=== PATIENT | female | born 1930 | race Asian ===

== ENCOUNTER 2016-06-14 16:17 | Emergency (ER) | payer OTHER ==
--- NOTE | 2016-06-14 16:43 | PDOC ---
History of Present Illness - General History Source: Patient Exam Limitations: Language Barrier - History of Present Illness Initial Comments: 06/14/16 17:51 History was taken by axle and frame mechanic phone. Developer Programmer #[id number]. The patient is an 85 year old female with past medical history of hypertension, hyperlipidemia, and diabetes who presents to the ED s/p mechanical fall approximately 2 hours ago. The patient states she was trying to reach for her walker and fell. She reports she is unsure how she fell remembers when the ambulance arrived. In the ED she reports right hip, right shoulder, and neck pain as well as headache with pain around her right eye. She denies any recent illness, fever, chills, nausea, vomiting, diarrhea, cough, or urinary symptoms. PCP: Mayi Michele <Haley Headley - Last Filed: 06/14/16 17:49> - General History Source: Patient Exam Limitations: Language Barrier - History of Present Illness Initial Comments: 06/14/16 16:42 [place] # <Chely Dang - Last Filed: 06/15/16 16:33> - General Stated Complaint: FALL Time Seen by Provider: 06/14/16 16:23 Past History <Haley Headley - Last Filed: 06/14/16 17:49> - Past Medical History Diabetes: Yes HTN: Yes Hypercholesterolemia: Yes - Surgical History Abdominal Surgery: Yes - Immunization History Immunization Up to Date: Yes - Psycho/Social/Smoking Cessation Hx Suicidal Ideation: No Smoking History: Never smoked Hx Alcohol Use: No Drug/Substance Use Hx: No Substance Use Type: None <Chely Dang - Last Filed: 06/15/16 16:33> - Past Medical History Allergies/Adverse Reactions: Allergies Allergy/AdvReac Type Severity Reaction Status Date / Time No Known Allergies Allergy Verified 06/14/16 16:47 Home Medications: Ambulatory Orders Bisoprolol 2.5MG/Hctz 6.25MG [Ziac 2.5/6.25 mg (Nf) -] 1 tab PO DAILY 02/02/16 Canagliflozin [Invokana] 300 mg PO DAILY 02/02/16 Clopidogrel Bisulfate [Plavix -] 75 mg PO DAILY 02/02/16 Diclofenac Sodium [Voltaren] 1 applic TP DAILY 02/02/16 Erythromycin 0.5% Eye Ointment [Erythromycin 0.5% Eye Ointment -] 1 applic DAILY 02/02/16 Lubiprostone [Amitiza] 24 mcg PO DAILY 02/02/16 Rosuvastatin [Crestor -] 5 mg PO HS 02/02/16 Sitagliptin Phosphate [Januvia] 100 mg PO DAILY 02/02/16 Tamsulosin HCl [Flomax -] 0.4 mg PO DAILY 02/02/16 Tramadol HCl 50 mg PO PRN 02/02/16 Vortioxetine Hydrobromide [Trintellix] 10 mg PO DAILY 02/02/16 Ibuprofen [Motrin -] 400 mg PO Q6H #120 tablet 02/05/16 Methocarbamol [Robaxin -] 500 mg PO TID PRN #21 tablet 06/14/16 Tramadol HCl 50 mg PO BID PRN #10 tablet MDD 2 06/14/16 Review of Systems - Review of Systems Able to Perform ROS?: Yes Comments:: 06/14/16 17:52 GENERAL/CONSTITUTIONAL: No fever or chills. No weakness. HEAD, EYES, EARS, NOSE AND THROAT: No change in vision. No ear pain or discharge. No sore throat. CARDIOVASCULAR: No chest pain or shortness of breath. RESPIRATORY: No cough, wheezing, or hemoptysis. GASTROINTESTINAL: No nausea, vomiting, diarrhea or constipation. GENITOURINARY: No dysuria, frequency, or change in urination. MUSCULOSKELETAL: Present: Right hip pain, right shoulder pain, neck pain No back pain. SKIN: No rash NEUROLOGIC: Present: headache No vertigo, loss of consciousness, or change in strength/sensation. ENDOCRINE: No increased thirst. No abnormal weight change. HEMATOLOGIC/LYMPHATIC: No anemia, easy bleeding, or history of blood clots. ALLERGIC/IMMUNOLOGIC: No hives or skin allergy. All Other Systems: Reviewed and Negative <Haley Headley - Last Filed: 06/14/16 17:49> *Physical Exam - Vital Signs Last Vital Signs Temp Pulse Resp BP Pulse Ox 97.9 F 63 18 181/67 96 06/14/16 16:30 06/14/16 16:30 06/14/16 16:30 06/14/16 16:30 06/14/16 16:30 - Physical Exam Comments: 06/14/16 17:53 GENERAL: Awake, alert, and fully oriented, in no acute distress HEAD: No signs of trauma EYES: PERRLA, EOMI, sclera anicteric, conjunctiva clear ENT: Auricles normal inspection, hearing grossly normal, nares patent, oropharynx clear without exudates. Moist mucosa NECK: Normal ROM, supple, no lymphadenopathy, JVD, or masses LUNGS: Breath sounds equal, clear to auscultation bilaterally. No wheezes, and no crackles HEART: Regular rate and rhythm, normal S1 and S2, no murmurs, rubs or gallops ABDOMEN: Soft, nontender, normoactive bowel sounds. No guarding, no rebound. No masses EXTREMITIES: [place] to palpation in right hip and shoulder, moving all extremities. Normal range of motion, no edema. No clubbing or cyanosis. No cords or erythema NEUROLOGICAL: Cranial nerves II through XII grossly intact. Normal speech, normal gait SKIN: Warm, Dry, normal turgor, no rashes or lesions noted. <Haley Headley - Last Filed: 06/14/16 17:49> Heart Score/ECG Review #1 ECG reviewed & interpreted by me at: 17:22 06/14/16 17:22 Junctional rhythm , rate of 65 bpm [place] normal no ST elevations or depressions T waves nml <Chely Dang - Last Filed: 06/15/16 16:33> ED Treatment Course - LABORATORY CBC & Chemistry Diagram: 06/14/16 17:37 06/14/16 17:37 <Haley Headley - Last Filed: 06/14/16 17:49> - LABORATORY CBC & Chemistry Diagram: 06/14/16 17:37 06/14/16 17:37 <Chely Dang - Last Filed: 06/15/16 16:33> Medical Decision Making - Medical Decision Making 06/14/16 17:28 Thsi is a 85 yo F presenting to the Er with a complaint of fall from standing (+) head trauma ? LOC Pt complains of right hip pain Left neck pain Will do basic labs will do Head CT and Cervical Spine CT will do hip x ray and chest x ray Will re assess 06/14/16 19:09 06/14/16 19:10 Laboratory Tests 06/14/16 06/14/16 06/14/16 17:37 17:37 17:56 WBC 3.2 L Hgb 12.6 Hct 37.7 Plt Count 126 L Neutrophils % 41.6 L D Lymphocytes % 44.2 H D Sodium 141 Potassium 3.7 Chloride 104 Carbon Dioxide 29 BUN 21 H Creatinine 0.9 Random Glucose 129 H Creatine Kinase 66 Troponin I 0.03 Urine Ketones Negative Urine Blood 1+ H Urine Nitrite Negative Ur Leukocyte Esterase Trace H 06/14/16 19:16 CT: Moderate volume loss and ventricular dilatation, moderate chronic microvascular ischemic changes are present. No mass lesion, no infarct, no hemorrhage. CT cervical spine: C3-C4 moderate disc bulge, posterior spur formation C4-C5 mild central disc bulge, procedures or information. C5-C6 broad based disc bulge without gross nerve impingement. 06/14/16 21:47 Laboratory Tests 06/14/16 20:48 Creatine Kinase 63 Troponin I 0.03 Repeat troponin nml Will attempt to ambulate this patient If she is able to do so, will discharge to home 06/15/16 00:00 CT pelvis: mild compression of L5, likely old wiht mild retropulsion of its posterior margin L5-S1 disc bulge NO FRACTURE Will discharge to home Follow up with PMD Pt given copies of all results Plan discussed with pt son and granddaughter <Chely Dang - Last Filed: 06/15/16 16:33> *DC/Admit/Observation/Transfer - Attestations Scribe Attestion: 06/14/16 17:55 Documentation prepared by Haley Headley, acting as medical numerical control operator for Chely Dang MD. <Haley Headley - Last Filed: 06/14/16 17:49> - Discharge Dispostion Admit: No <Chely Dang - Last Filed: 06/15/16 16:33> Diagnosis at time of Disposition: Fall from standing Qualifiers: Encounter type: initial encounter Qualified Code(s): W19.XXXA - Unspecified fall, initial encounter - Discharge Dispostion Disposition: HOME Condition at time of disposition: Stable - Prescriptions Prescriptions: Methocarbamol [Robaxin -] 500 mg PO TID PRN #21 tablet PRN Reason: Pain Tramadol HCl 50 mg PO BID PRN #10 tablet MDD 2 PRN Reason: Pain - Patient Instructions Printed Discharge Instructions: How to Prevent Falls, DI for Musculoskeletal Pain Additional Instructions: Thank you for coming in to the ER today You make take tylenol for pain if needed If you have severe pain, you can take Tylenol #3 You should follow up with your primary care physician If you have persistent or worsening pain you MUST return to the ER for re evaluation you can sometimes have other injures not immediately visible Print Language: Swedish
[2016-06-14 16:48] VITALS: BP 181/67; PULSE 63; TEMP 97.9; BMI 26.7
[2016-06-14 17:46] LABS: BASOPHIL 0.6 % (0-2.0); EOSINOPHIL 1.2 % (0-4.5); MCH 32.5 pg (25.7-33.7); MCHC 33.4 g/dl (32.0-36.0); MEAN CELL VOLUME 97.3 fl (80-96); MEAN PLT VOLUME 7.8 fl (7.5-11.1); NEUTROPHILS 41.6 % (42.8-82.8); PLATELET COUNT 126 K/MM3 (134-434); RDW 12.9 % (11.6-15.6); WHITE BLOOD COUNT 3.2 K/mm3 (4.0-10.0)
[2016-06-14 18:38] LABS: URINE APPEARANCE CLEAR; URINE BILIRUBIN NEGATIVE (NEGATIVE); URINE COLOR COLORLESS; URINE GLUCOSE (UA) 3+ (NEGATIVE); URINE KETONE NEGATIVE (NEGATIVE); URINE NITRITE NEGATIVE (NEGATIVE); URINE UROBILINOGEN NEGATIVE E.U./dl (0.2-1.0)
[2016-06-14] MEDS ORDERED: ACETAMINOPHEN 1000 MG/100 ML VIAL (NON FORMULARY) IVPB ONE (18:41)
[2016-06-14 18:45] LABS: ALBUMIN 3.6 g/dl (3.4-5.0); BILIRUBIN,TOTAL 0.5 mg/dL (0.2-1.0); COCKROFT - GAULT 45.645; CREATININE 0.9 mg/dL (0.55-1.02); TOT PROT 6.9 g/dl (6.4-8.2); TROPONIN I 0.03 ng/ml (0.00-0.05)
[2016-06-14 18:49] LABS: URINE BLOOD 1+ (NEGATIVE); URINE LEUK ESTERASE TRACE (NEGATIVE); URINE PROTEIN 2+ (NEGATIVE)
[2016-06-14] MEDS ORDERED: ACETAMINOPHEN INJECTION 100 ML IVPB ONE (18:49)
[2016-06-14 21:30] LABS: URINE RBC 6 /hpf (0-3); URINE WBC 4 /hpf (3-5)
[2016-06-14 21:35] LABS: TROPONIN I 0.03 ng/ml (0.00-0.05)
--- NOTE | 2016-06-15 11:18 | EKG ---
Test Reason : Blood Pressure : / mmHG Vent. Rate : 065 BPM Atrial Rate : 326 BPM P-R Int : 000 ms QRS Dur : 084 ms QT Int : 436 ms P-R-T Axes : 000 -16 049 degrees QTc Int : 453 ms NORMAL SINUS RHYTHM WITH 1ST DEGREE A-V BLOCK Confirmed by BERTHA BURRELL MD ([id number]) on 06/15/2016 11:18:10 AM Referred By: Confirmed By:BERTHA BURRELL MD
== END 2016-06-15 00:15 | disposition home or self-care (01) ==
LOC: JER 16:17
PROC: 3E033NZ Introduction of Analgesics, Hypnotics, Sedatives into Peripheral Vein, Percutaneous Approach (ICD-10-PCS; principal; 2016-06-14)
DX: M25.561 Pain in right knee (principal); W18.39XA Other fall on same level, initial encounter; Y93.89 Activity, other specified; Y92.009 Unspecified place in unspecified non-institutional (private) residence as the place of occurrence of the external cause; I10 Essential (primary) hypertension; E11.9 Type 2 diabetes mellitus without complications; E78.00 Pure hypercholesterolemia, unspecified
CPT/HCPCS: 36415; 70450-TC; 71010-TC; 72125-TC; 72192-TC; 73523-TC; 80053; 81003; 81015; 82550; 84484; 85025; 93005; 93010; 96374; 99282-25

== ENCOUNTER 2018-04-05 11:52 | Observation (INO) | payer OTHER ==
--- NOTE | 2018-04-05 12:04 | PDOC ---
History of Present Illness - General Chief Complaint: Weakness Stated Complaint: WEAKNESS - History of Present Illness Initial Comments: 04/05/18 12:39 87 yo Female with PMH of HTN, HLD, NIDDM, Irregular heart rate (a-fib?) arthritis presents today for worsening weakness. History taken mostly from using registered clinical dietitian #[id number]. He states that she has complained of some weakness for about 2 months however this morning the weakness significantly worsened and he had to catch her twice this morning to prevent her from falling. He denies that she actually had any falls recently. She has had a good appetite and states her blood sugars are usually around 180. She last checked her sugar yesterday afternoon, it was 125 at that time, and she states she had a good breakfast this morning. She denies any fevers, chills, SOB, cough, chest pain. However, he does endorse that she was complaining of some burning on urination this morning in addition to the worsening weakness. He expresses his concern that she has had a heart condition (the irregular rate) for 50 years and wants to make sure that her heart is checked today. Past History - Travel Traveled outside of the country in the last 30 days: No - Past Medical History Allergies/Adverse Reactions: Allergies Allergy/AdvReac Type Severity Reaction Status Date / Time No Known Allergies Allergy Verified 06/14/16 16:47 Home Medications: Ambulatory Orders Bisoprolol 2.5MG/Hctz 6.25MG [Ziac 2.5/6.25 mg (Nf) -] 1 tab PO DAILY 02/02/16 Canagliflozin [Invokana] 300 mg PO DAILY 02/02/16 Clopidogrel Bisulfate [Plavix -] 75 mg PO DAILY 02/02/16 Diclofenac Sodium [Voltaren] 1 applic TP DAILY 02/02/16 Erythromycin 0.5% Eye Ointment [Erythromycin 0.5% Eye Ointment -] 1 applic DAILY 02/02/16 Lubiprostone [Amitiza] 24 mcg PO DAILY 02/02/16 Rosuvastatin [Crestor -] 5 mg PO HS 02/02/16 Sitagliptin Phosphate [Januvia] 100 mg PO DAILY 02/02/16 Tamsulosin HCl [Flomax -] 0.4 mg PO DAILY 02/02/16 Tramadol HCl 50 mg PO PRN 02/02/16 Vortioxetine Hydrobromide [Trintellix] 10 mg PO DAILY 02/02/16 Ibuprofen [Motrin -] 400 mg PO Q6H #120 tablet 02/05/16 Methocarbamol [Robaxin -] 500 mg PO TID PRN #21 tablet 06/14/16 Tramadol HCl 50 mg PO BID PRN #10 tablet MDD 2 06/14/16 Diabetes: Yes (NIDDM) HTN: Yes Hypercholesterolemia: Yes Psychiatric Problems: Yes (DEPRESSION) - Surgical History Abdominal Surgery: Yes - Immunization History Immunization Up to Date: Yes - Suicide/Smoking/Psychosocial Hx Smoking History: Never smoked Hx Alcohol Use: No Drug/Substance Use Hx: No Substance Use Type: None Review of Systems - Review of Systems Constitutional: No: Chills, Fever Respiratory: No: Cough, Shortness of Breath Cardiac (ROS): Yes: Irregular Heart Rate. No: Chest Pain, Palpitations ABD/GI: No: Abdominal Distended : Yes: Burning, Dysuria Neurological: Yes: Weakness. No: Headache *Physical Exam - Physical Exam Comments: 04/05/18 12:47 GEN: Alert and oriented but weak appearing with minimal conversation during encounter HEENT: PERRL, dry mucus membranes, no pharyngeal exudate NECK: supple, no lymphadenopathy HEART: RRR, no murmurs noted LUNGS: CTA b/l, no wheezes or rales ABDOMEN: Soft, some tenderness to palpation, normoactive bowel sounds EXTREMITIES: 2+ pulses, no peripheral edema or calf tenderness ED Treatment Course - LABORATORY CBC & Chemistry Diagram: 04/05/18 13:25 04/05/18 13:25 Medical Decision Making - Medical Decision Making 04/05/18 12:49 87 yo female presents with significant weakness since this morning around 9:30 with additional complaint of burning on urination. Will pursue infectious workup at this point with Ddx of UTI, could less likely be ACS, pneumonia, flu. CBC, CMP, Cardiac profile, EKG, CXR, flu swab, UA, Urine culture pending 04/05/18 14:45 WBC count noted 3.3. BUN elevation noted at 37, Cr 1.2, will give 1L LR and reassess. UA still uncollected, will straight cath to collect urine sample if necessary. 04/05/18 16:45 UA negative, pt still with weakness which is not improving. Bradycardia noted. It is possible that pt is taking too much Beta chela and does not require as much rate control. This could be symptomatic bradycardia. Will discuss with hospitalist for tele observation. 04/05/18 17:13 Case discussed with hospitalist who will accept for telemetry observation *DC/Admit/Observation/Transfer Diagnosis at time of Disposition: Symptomatic bradycardia, Weakness - Discharge Dispostion Condition at time of disposition: Stable Decision to Admit order: Yes - Referrals Referrals: Mayi Michele [Non Staff, Medical] - - Patient Instructions - Post Discharge Activity
[2018-04-05 12:18] VITALS: BMI 25.4
[2018-04-05 13:32] LABS: BASO % 0.5 % (0-2.0); EOS % 2.9 % (0-4.5); HEMATOCRIT 35.9 % (32.4-45.2); HEMOGLOBIN 12.8 GM/dL (10.7-15.3); LYMPH % 41.6 % (8-40); MCH 35.5 pg (25.7-33.7); MCHC 35.6 g/dl (32.0-36.0); MEAN CELL VOLUME 99.8 fl (80-96); MEAN PLT VOLUME 7.5 fl (7.5-11.1); PLATELET COUNT 117 K/MM3 (134-434); RDW 13.1 % (11.6-15.6); WHITE BLOOD COUNT 3.3 K/mm3 (4.0-10.0)
[2018-04-05 14:00] LABS: ALBUMIN 3.8 g/dl (3.4-5.0); ALK PHOS 53 U/L (45-117); ANION GAP 4 MMOL/L (8-16); BILIRUBIN,TOTAL 0.3 mg/dL (0.2-1); BLOOD UREA NITROGEN 37 mg/dL (7-18); CALCIUM 9.2 mg/dL (8.5-10.1); CHLORIDE 105 mmol/L (98-107); CO2 31 mmol/L (21-32); CREATININE 1.2 mg/dL (0.55-1.3); GLUCOSE,RANDOM 124 mg/dL (74-106); POTASSIUM 4.1 mmol/L (3.5-5.1); SGOT/AST 24 U/L (15-37); SGPT/ALT 26 U/L (13-61); SODIUM 140 mmol/L (136-145); TOT PROT 7.3 g/dl (6.4-8.2)
[2018-04-05 14:28] LABS: MAGNESIUM 2.4 mg/dL (1.8-2.4); PHOSPHOROUS 3.7 mg/dL (2.5-4.9)
[2018-04-05] MEDS: LACTATED RINGERS SOLUTION 1000 ML INFUS.BAG IV ONE ×2 (15:11→16:20)
--- NOTE | 2018-04-05 15:55 | PDOC ---
Attending Attestation - Resident Resident Name: Etienne Gabriel - ED Attending Attestation I have performed the following: I have examined & evaluated the patient, The case was reviewed & discussed with the resident, I agree w/resident's findings & plan, Exceptions are as noted - HPI HPI: 04/05/18 15:46 The patient is a 87 year old female with a significant past medical history of hypertension, hyperlipidemia, diabetes, afib and arthritis who presents to the emergency department with worsening weakness for 2 months, but progressively worse today. As per the patient's at bedside (italian speaking only), the patient began to have some notable weakness about 2 months ago and he states that today it was significantly worse. The patient's states that he had to catch her two times this morning to prevent her from falling secondary to trying to ambulate. Patient also endorses some dysuria with her weakness. Denies any recent or prior fall or trauma. The patient's states that the patient usually has a good appetite and checks her sugar daily( had breakfast this morning and last sugar noted to be 125). Denies any other symptoms or complaints of CP, SOB, dizziness, abd pain, N/V/D, LE edema. - Physicial Exam PE: 04/05/18 15:46 agree with resident exam - Medical Decision Making 04/05/18 15:55 87yo F with hx hypertension, hyperlipidemia, diabetes, afib and arthritis presents to the ED with generalized weakness and 2 falls today, caught by her both times. Pt also with dysuria. Vitals with bradycardia to 45, otherwise unremarkable. Exam with lethargic but arousable pt. DDx is wide, includes infection vs metabolic vs ischemic vs neuro abnormality. It's possible pt has symptomatic bradycardia as well. Anticipate admission. Heart Score/ECG Review #1 04/05/18 16:00 Twelve-lead EKG was performed and reviewed by me. Sinus bradycardia, rate 48. Normal axis. Incomplete right bundle branch block. No ST elevations.
[2018-04-05 15:57] LABS: URINE APPEARANCE CLEAR; URINE BILIRUBIN NEGATIVE (<2.0 mg/dL); URINE COLOR LTYELLOW; URINE GLUCOSE (UA) 3+ (NEGATIVE); URINE KETONE NEGATIVE (NEGATIVE); URINE LEUK ESTERASE NEGATIVE (NEGATIVE); URINE NITRITE NEGATIVE (NEGATIVE); URINE PROTEIN NEGATIVE (NEGATIVE); URINE UROBILINOGEN NEGATIVE mg/dL (0.2-1.0)
--- NOTE | 2018-04-05 17:50 | HP ---
CHIEF COMPLAINT: weakness PCP: Dr. Ryne See HISTORY OF PRESENT ILLNESS: Multiple attempts made to reach part[facility] farmer service, but unable to reach [place] partridge farmer currently, will re-attempt to obtain further history. Current history per ED notes and prior records. 87 yof with PMHx of HTN, HLD, NIDDM, irregular heart rate (?Afib), prior falls, L3 compression fracture, comes with reported weakness for 2 months. Today with worsening weakness and had to catch her twice to prevent her from falling. Also reported buring with urination. Tolerating po well. No fevers, chills, cough, shortness of breath. patient ate well today and last blood glucose yesterday was 120s. Currently patient comfortable in bed, at bedside. ER course was notable for: (1) LR 1000 ml x 1 (2) EKG sinus bradycardia 48 Recent Travel: not available PAST MEDICAL HISTORY: HTN, HLD, NIDDM, irregular heart rate (?Afib), prior falls PAST SURGICAL HISTORY: none Social History: Smoking: no Alcohol: no Drugs: no Lives with Family History: not available Allergies No Known Allergies Allergy (Verified 06/14/16 16:47) HOME MEDICATIONS: Home Medications Medication Instructions Recorded Bisoprolol 2.5MG/Hctz 6.25MG [Ziac 1 tab PO DAILY 02/02/16 2.5/6.25 mg (Nf) -] Canagliflozin [Invokana] 300 mg PO DAILY 02/02/16 Clopidogrel Bisulfate [Plavix -] 75 mg PO DAILY 02/02/16 Diclofenac Sodium [Voltaren] 1 applic TP DAILY 02/02/16 Erythromycin 0.5% Eye Ointment 1 applic DAILY 02/02/16 [Erythromycin 0.5% Eye Ointment -] Lubiprostone [Amitiza] 24 mcg PO DAILY 02/02/16 Rosuvastatin [Crestor -] 5 mg PO HS 02/02/16 Sitagliptin Phosphate [Januvia] 100 mg PO DAILY 02/02/16 Tamsulosin HCl [Flomax -] 0.4 mg PO DAILY 02/02/16 Tramadol HCl 50 mg PO PRN 02/02/16 Vortioxetine Hydrobromide 10 mg PO DAILY 02/02/16 [Trintellix] Ibuprofen [Motrin -] 400 mg PO Q6H #120 tablet 02/05/16 Methocarbamol [Robaxin -] 500 mg PO TID PRN #21 tablet 06/14/16 Tramadol HCl 50 mg PO BID PRN #10 tablet MDD 2 06/14/16 REVIEW OF SYSTEMS 12 point ROS attempted, limited but as above. PHYSICAL EXAMINATION Vital Signs - 24 hr 04/05/18 11:52 Temperature 98.1 F Pulse Rate 52 L Respiratory 16 Rate Blood Pressure 155/59 L O2 Sat by Pulse 95 Oximetry (%) GENERAL: Awake, alert, in no acute distress. HEAD: Normal with no signs of trauma. EYES: Pupils equal, round and reactive to light, extraocular movements intact, sclera anicteric, conjunctiva clear. No lid lag. EARS, NOSE, THROAT: Ears normal, nares patent, oropharynx clear without exudates. Moist mucous membranes. NECK: soft, supple, no JVD LUNGS: Breath sounds equal, clear to auscultation bilaterally. No wheezes, and no crackles. No accessory muscle use. HEART: Regular rate and rhythm, normal S1 and S2 ABDOMEN: Soft, vague left and right [place]-umbilical tenderness, no voluntary or involuntary guarding or rigidity, not distended, normoactive bowel sounds, no guarding, no rebound, no masses. No hepatomegaly or splenomegaly appreciated. MUSCULOSKELETAL: Normal range of motion at all joints. No bony deformities or tenderness. No CVA tenderness. UPPER EXTREMITIES: 2+ pulses, warm, well-perfused. No cyanosis. No clubbing. No peripheral edema. LOWER EXTREMITIES: 2+ pulses, warm, well-perfused. No calf tenderness. No peripheral edema. NEUROLOGICAL: AA, oriented to self, at beside, facial symmetry, tongue midline, EOMI, PERRL, power 5/5 , no pronator drift, DTR bilaterally symmetric, toes downgoing PSYCHIATRIC: Cooperative. Good eye contact. Appropriate mood and affect. SKIN: Warm, dry, normal turgor, no rashes or lesions noted, normal capillary refill. Laboratory Results - last 24 hr 04/05/18 04/05/18 04/05/18 13:25 13:25 13:36 WBC 3.3 L RBC 3.60 Hgb 12.8 Hct 35.9 MCV 99.8 H MCH 35.5 H MCHC 35.6 RDW 13.1 Plt Count 117 L MPV 7.5 Absolute Neuts (auto) 1.5 Neutrophils % 45.0 Lymphocytes % 41.6 H Monocytes % 10.0 Eosinophils % 2.9 D Basophils % 0.5 Nucleated RBC % 0 Sodium 140 Potassium 4.1 Chloride 105 Carbon Dioxide 31 Anion Gap 4 L BUN 37 H Creatinine 1.2 Creat Clearance w eGFR 42.60 Random Glucose 124 H Calcium 9.2 Phosphorus 3.7 Magnesium 2.4 Total Bilirubin 0.3 AST 24 ALT 26 Alkaline Phosphatase 53 Creatine Kinase 68 Troponin I 0.02 Total Protein 7.3 Albumin 3.8 Urine Color Urine Appearance Urine pH Ur Specific [place] Urine Protein Urine Glucose (UA) Urine Ketones Urine Blood Urine Nitrite Urine Bilirubin Urine Urobilinogen Ur Leukocyte Esterase Influenza A (Rapid) Negative Influenza B (Rapid) Negative 04/05/18 15:30 WBC RBC Hgb Hct MCV MCH MCHC RDW Plt Count MPV Absolute Neuts (auto) Neutrophils % Lymphocytes % Monocytes % Eosinophils % Basophils % Nucleated RBC % Sodium Potassium Chloride Carbon Dioxide Anion Gap BUN Creatinine Creat Clearance w eGFR Random Glucose Calcium Phosphorus Magnesium Total Bilirubin AST ALT Alkaline Phosphatase Creatine Kinase Troponin I Total Protein Albumin Urine Color Ltyellow Urine Appearance Clear Urine pH 6.0 Ur Specific [place] 1.012 Urine Protein Negative Urine Glucose (UA) 3+ H Urine Ketones Negative Urine Blood Negative Urine Nitrite Negative Urine Bilirubin Negative Urine Urobilinogen Negative Ur Leukocyte Esterase Negative Influenza A (Rapid) Influenza B (Rapid) EKG sinus bradycardia 48, no acute ST-T changes CXR - cartilage calcifications, no acute process ASSESSMENT/PLAN: 87 yof with PMHx of HTN, HLD, NIDDM, irregular heart rate (?Afib), prior falls, L3 compression fracture, admitted with weakness. -Weakness, r/o arrhythmia, dehydration, no s/s concerning for infectious process -HTN -HLD -NIDDM -Irregular heart rate (?Afib) -Prior falls -L3 compression fracture Plan: Telemetry,repeat Troponin. Hold bisoprolol/hCtz today. Gentle hydration. Fall precautions, PT eval. Hold oral hypoglycemics, ISS, diabetic diet DVTPPx CM consult for d/c planning [facility] pharmacy called, patient's profile empty, will attempt to retrieve med list from PCP in AM Dispo admit to tele obs. d/c in 24 hours if no concerns. total admit time 55 min. Visit type - Emergency Visit Emergency Visit: Yes ED Registration Date: 04/05/18 Care time: The patient presented to the Emergency Department on the above date and was hospitalized for further evaluation of their emergent condition. - New Patient This patient is new to me today: Yes Date on this admission: 04/05/18 - Critical Care Critical Care patient: No
[2018-04-05] MEDS ORDERED: ACETAMINOPHEN 325 MG TABLET (FP) PO PRN (18:11)
[2018-04-05] MEDS: SODIUM CHLORIDE 1,000 ML IV SCH (21:15)
[2018-04-05] MEDS: HEPARIN NA (PORCINE) 5,000 UNITS/ML 1ML VIAL SQ SCH (23:00)
[2018-04-06] MEDS: INSULIN SLIDING SCALE (NOVOLOG) 1 VIAL SQ SCH ×3 (02:01→12:09)
[2018-04-06 07:08] LABS: BASO % 0.6 % (0-2.0); EOS % 3.9 % (0-4.5); HEMOGLOBIN 11.9 GM/dL (10.7-15.3); LYMPH % 44.4 % (8-40); MCH 34.6 pg (25.7-33.7); MCHC 35.1 g/dl (32.0-36.0); MEAN CELL VOLUME 98.7 fl (80-96); MEAN PLT VOLUME 7.8 fl (7.5-11.1); MONO % 9.1 % (3.8-10.2); PLATELET COUNT 122 K/MM3 (134-434); RBC 3.45 M/mm3 (3.60-5.2); RDW 12.9 % (11.6-15.6); WHITE BLOOD COUNT 3.2 K/mm3 (4.0-10.0)
[2018-04-06] MEDS ORDERED: INSULIN (NOVOLOG) ASPART 100 UNITS/ML 10ML VIAL ONE ×2 (07:34→13:58)
[2018-04-06 07:40] LABS: ANION GAP 5 MMOL/L (8-16); BLOOD UREA NITROGEN 32 mg/dL (7-18); CHLORIDE 107 mmol/L (98-107); CO2 28 mmol/L (21-32); GLUCOSE,RANDOM 115 mg/dL (74-106); MAGNESIUM 2.6 mg/dL (1.8-2.4); PHOSPHOROUS 3.6 mg/dL (2.5-4.9); POTASSIUM 4.5 mmol/L (3.5-5.1); SODIUM 140 mmol/L (136-145)
[2018-04-06] MEDS ORDERED: CLOPIDOGREL BISULFATE 75 MG TABLET (FP) PO SCH (10:00)
[2018-04-06] MEDS: HEPARIN NA (PORCINE) 5,000 UNITS/ML 1ML VIAL SQ SCH (10:28)
--- NOTE | 2018-04-06 10:35 | EKG ---
Test Reason : Blood Pressure : / mmHG Vent. Rate : 048 BPM Atrial Rate : 048 BPM P-R Int : 208 ms QRS Dur : 096 ms QT Int : 486 ms P-R-T Axes : 037 -08 056 degrees QTc Int : 434 ms SINUS BRADYCARDIA INCOMPLETE RIGHT BUNDLE BRANCH BLOCK BORDERLINE ECG WHEN COMPARED WITH ECG OF 14-JUN-2016 17:04, VENT. RATE HAS DECREASED Confirmed by CARMENZA WILL MD ([id number]) on 04/06/2018 10:34:57 AM Referred By: Confirmed By:CARMENZA WILL MD
[2018-04-06] MEDS: SODIUM CHLORIDE 1,000 ML IV SCH (10:47)
--- NOTE | 2018-04-06 11:31 | PN ---
Teaching Attending Note Name of Resident: German Vaca ATTENDING PHYSICIAN STATEMENT I saw and evaluated the patient. I reviewed the resident's note and discussed the case with the resident. I agree with the resident's findings and plan as documented with exceptions below. SUBJECTIVE: Patient seen and examined with the help of laboratory associate #[id number]. Weakness improved, no new complaints. OBJECTIVE: Vital Signs Period Temp Pulse Resp BP Sys/Aguilar Pulse Ox Last 24 Hr 98.1 F 52 16 155/59 95 Intake & Output 04/03/18 04/04/18 04/05/18 04/06/18 23:59 23:59 23:59 23:59 Weight 130 lb General: sitting in bed in no acute distress Chest: CTAB, no rales or wheezing Abdomen:soft, NT Extremities: no edema Active Medications Acetaminophen (Tylenol -) 650 mg PO Q6H PRN PRN Reason: PAIN LEVEL 6-10 Amlodipine Besylate (Norvasc -) 5 mg PO DAILY [facility] Clopidogrel Bisulfate (Plavix -) 75 mg PO DAILY [facility] Last Admin: 04/06/18 10:28 Dose: 75 mg Clopidogrel Bisulfate (Plavix -) 75 mg PO DAILY [facility] Heparin Sodium (Porcine) (Heparin -) 5,000 unit SQ BID [facility] Last Admin: 04/06/18 10:28 Dose: 5,000 unit Insulin Aspart (Novolog Vial Sliding Scale -) 1 vial SQ ACHS [facility]; Protocol Last Admin: 04/06/18 07:31 Dose: 2 unit Non-Formulary Medication (Icosapent Ethyl [Vascepa]) 1 gm PO BID [facility] Non-Formulary Medication (Lubiprostone [Amitiza]) 24 mcg PO DAILY [facility] Ranitidine HCl (Zantac -) 150 mg PO DAILY [facility] Rosuvastatin Calcium (Crestor -) 5 mg PO DAILY [facility] Laboratory Results - last 24 hr 04/05/18 04/05/18 04/05/18 13:25 13:25 13:36 WBC 3.3 L RBC 3.60 Hgb 12.8 Hct 35.9 MCV 99.8 H MCH 35.5 H MCHC 35.6 RDW 13.1 Plt Count 117 L MPV 7.5 Absolute Neuts (auto) 1.5 Neutrophils % 45.0 Lymphocytes % 41.6 H Monocytes % 10.0 Eosinophils % 2.9 D Basophils % 0.5 Nucleated RBC % 0 Sodium 140 Potassium 4.1 Chloride 105 Carbon Dioxide 31 Anion Gap 4 L BUN 37 H Creatinine 1.2 Creat Clearance w eGFR 42.60 POC Glucometer Random Glucose 124 H Calcium 9.2 Phosphorus 3.7 Magnesium 2.4 Total Bilirubin 0.3 AST 24 ALT 26 Alkaline Phosphatase 53 Creatine Kinase 68 Troponin I 0.02 Total Protein 7.3 Albumin 3.8 Urine Color Urine Appearance Urine pH Ur Specific [place] Urine Protein Urine Glucose (UA) Urine Ketones Urine Blood Urine Nitrite Urine Bilirubin Urine Urobilinogen Ur Leukocyte Esterase Influenza A (Rapid) Negative Influenza B (Rapid) Negative 04/05/18 04/06/18 04/06/18 15:30 02:00 05:30 WBC 3.2 L RBC 3.45 L Hgb 11.9 Hct 34.0 MCV 98.7 H MCH 34.6 H MCHC 35.1 RDW 12.9 Plt Count 122 L MPV 7.8 Absolute Neuts (auto) 1.3 L Neutrophils % 42.0 L Lymphocytes % 44.4 H Monocytes % 9.1 Eosinophils % 3.9 Basophils % 0.6 Nucleated RBC % 0 Sodium Potassium Chloride Carbon Dioxide Anion Gap BUN Creatinine Creat Clearance w eGFR POC Glucometer 109 Random Glucose Calcium Phosphorus Magnesium Total Bilirubin AST ALT Alkaline Phosphatase Creatine Kinase Troponin I Total Protein Albumin Urine Color Ltyellow Urine Appearance Clear Urine pH 6.0 Ur Specific [place] 1.012 Urine Protein Negative Urine Glucose (UA) 3+ H Urine Ketones Negative Urine Blood Negative Urine Nitrite Negative Urine Bilirubin Negative Urine Urobilinogen Negative Ur Leukocyte Esterase Negative Influenza A (Rapid) Influenza B (Rapid) 04/06/18 04/06/18 05:30 07:15 WBC RBC Hgb Hct MCV MCH MCHC RDW Plt Count MPV Absolute Neuts (auto) Neutrophils % Lymphocytes % Monocytes % Eosinophils % Basophils % Nucleated RBC % Sodium 140 Potassium 4.5 Chloride 107 Carbon Dioxide 28 Anion Gap 5 L BUN 32 H Creatinine 1.0 Creat Clearance w eGFR 52.57 POC Glucometer 174 Random Glucose 115 H Calcium 9.0 Phosphorus 3.6 Magnesium 2.6 H Total Bilirubin AST ALT Alkaline Phosphatase Creatine Kinase Troponin I < 0.02 Total Protein Albumin Urine Color Urine Appearance Urine pH Ur Specific [place] Urine Protein Urine Glucose (UA) Urine Ketones Urine Blood Urine Nitrite Urine Bilirubin Urine Urobilinogen Ur Leukocyte Esterase Influenza A (Rapid) Influenza B (Rapid) ASSESSMENT AND PLAN: 87 yof with PMHx of HTN, HLD, NIDDM, irregular heart rate (?Afib), prior falls, L3 compression fracture, admitted with weakness. -Weakness, r/o arrhythmia, dehydration, no s/s concerning for infectious process -HTN -HLD -NIDDM -Irregular heart rate (?Afib) -Prior falls -L3 compression fracture Plan: No events overnight. Patient feeling well, no evidence or infection or urine infection. d/c IVF. PT eval noted, plan for home PT, patient and agreable. Rolling walker. Hold Bisoprolol/HCTZ on discharge. To discuss with PCP for resumptions. [place] [facility] called and medications confirmed. D/c home with VNS/PT today, plan discussed with in detail, all questions answered. Plan discussed with case management.
--- NOTE | 2018-04-06 14:11 | ECHO ---
Name: URI HANSEN Exam:Adult Echocardiogram Study Date: 04/06/2018 12:29 PM Age: 87 yrs Reason For Study: LVF Height: 60 in Weight: 130 lb BSA: 1.6 m2 MMode/2D Measurements & Calculations IVSd: 1.0 cm Ao root diam: 3.2 cm LVIDd: 3.7 cm LA dimension: 3.2 cm LVIDs: 2.6 cm LVPWd: 0.91 cm EDV(Teich): 56.3 ml LVOT diam: 2.0 cm ESV(Teich): 24.6 ml TAPSE: 3.6 cm Doppler Measurements & Calculations MV E max darryl: 65.6 cm/sec Ao V2 max: 184.6 cm/sec MV A max darryl: 57.8 cm/sec Ao max P.6 mmHg MV E/A: 1.1 Ao V2 mean: 119.3 cm/sec MV dec time: 0.42 sec Ao mean P.7 mmHg Ao V2 VTI: 47.5 cm TELMA(I,D): 1.7 cm2 AI P1/2t: 640.5 msec TELMA(V,D): 1.7 cm2 AI max darryl: 362.9 cm/sec LV V1 max P.8 mmHg AI max P.7 mmHg LV V1 mean P.8 mmHg AI dec slope: 165.9 cm/sec2 LV V1 max: 97.8 cm/sec LV V1 mean: 59.7 cm/sec LV V1 VTI: 25.0 cm SV(LVOT): 82.5 ml TR max darryl: 247.3 cm/sec TR max P.6 mmHg Med Peak E' Darryl: 3.9 cm/sec Med E/e': 16.8 Lat Peak E' Darryl: 6.1 cm/sec Lat E/e': 10.7 Procedure A complete two-dimensional transthoracic echocardiogram was performed (2D, M-mode, Doppler and color flow Doppler). Left Ventricle The left ventricle is normal in size. Left ventricular systolic function is normal. Ejection Fraction = 55- 60%. No regional wall motion abnormalities noted. Right Ventricle The right ventricle is normal size. The right ventricular systolic function is normal. RV systolic TD I is 10 cm/s. Atria The left atrial size is normal. Right atrial size is normal. Mitral Valve The mitral valve is normal in structure and function. There is trace mitral regurgitation. Tricuspid Valve The tricuspid valve is normal in structure and function. There is mild to moderate tricuspid regurgit ation. Aortic Valve There is mild aortic sclerosis.;. Mild to moderate aortic regurgitation. Pulmonic Valve The pulmonic valve is not well visualized. Trace pulmonic valvular regurgitation. Great Vessels The aortic root is normal size. Pericardium/Pleura There is no pericardial effusion. Interpretation Summary The left ventricle is normal in size. Left ventricular systolic function is normal. No regional wall motion abnormalities noted. Ejection Fraction = 55-60%. The right ventricular systolic function is normal. The left atrial size is normal. Right atrial size is normal. There is trace mitral regurgitation. There is mild to moderate tricuspid regurgitation. There is mild aortic sclerosis. Mild to moderate aortic regurgitation. Trace pulmonic valvular regurgitation. There is no pericardial effusion. Previous study is not available for comparison Navneet Castellanos MD 04/06/2018 02:10 PM
[2018-04-06 14:12] VITALS: BP 160/60; PULSE 59; TEMP 98.1
--- NOTE | 2018-04-06 16:09 | DS ---
Physical Exam: SUBJECTIVE: Patient seen and examined, weakness improved, no complaints, at bedside. OBJECTIVE: Vital Signs Period Temp Pulse Resp BP Sys/Aguilar Pulse Ox Last 24 Hr 98.1 F-98.4 F 49-59 16-17 160-160/58-60 PHYSICAL EXAM GENERAL: The patient is awake, alert, oriented, in no acute distress. HEAD: Normal with no signs of trauma. EYES: PERRL, extraocular movements intact, sclera anicteric, conjunctiva clear. ENT: Ears normal, nares patent, oropharynx clear without exudates, moist mucous membranes. NECK: Trachea midline, full range of motion, supple. LUNGS: Breath sounds equal, clear to auscultation bilaterally, no wheezes, no crackles, no accessory muscle use. HEART: Regular rate and rhythm, S1, S2 ABDOMEN: Soft, nontender, nondistended, normoactive bowel sounds, no guarding, no rebound, no hepatosplenomegaly, no masses. EXTREMITIES: 2+ pulses, warm, well-perfused, no edema. NEUROLOGICAL: Cranial nerves II through XII grossly intact. Normal speech, gait not observed. PSYCH: Normal mood, normal affect. SKIN: Warm, dry, normal turgor, no rashes or lesions noted. LABS Laboratory Results - last 24 hr 04/06/18 04/06/18 04/06/18 02:00 05:30 05:30 WBC 3.2 L RBC 3.45 L Hgb 11.9 Hct 34.0 MCV 98.7 H MCH 34.6 H MCHC 35.1 RDW 12.9 Plt Count 122 L MPV 7.8 Absolute Neuts (auto) 1.3 L Neutrophils % 42.0 L Lymphocytes % 44.4 H Monocytes % 9.1 Eosinophils % 3.9 Basophils % 0.6 Nucleated RBC % 0 Sodium 140 Potassium 4.5 Chloride 107 Carbon Dioxide 28 Anion Gap 5 L BUN 32 H Creatinine 1.0 Creat Clearance w eGFR 52.57 POC Glucometer 109 Random Glucose 115 H Calcium 9.0 Phosphorus 3.6 Magnesium 2.6 H Troponin I < 0.02 04/06/18 04/06/18 07:15 13:48 WBC RBC Hgb Hct MCV MCH MCHC RDW Plt Count MPV Absolute Neuts (auto) Neutrophils % Lymphocytes % Monocytes % Eosinophils % Basophils % Nucleated RBC % Sodium Potassium Chloride Carbon Dioxide Anion Gap BUN Creatinine Creat Clearance w eGFR POC Glucometer 174 185 Random Glucose Calcium Phosphorus Magnesium Troponin I HOSPITAL COURSE: Date of Admission:04/05/18 Date of Discharge: 04/06/18 Minutes to complete discharge: 35 Discharge Summary Reason For Visit: SYMPTOMATIC BRADYCARDIA Hospital Course: 87 yof with PMHx of HTN, HLD, NIDDM, irregular heart rate (?Afib), prior falls, L3 compression fracture, admitted with weakness when had to support her from falling. patient was noted with sinus bradycardia 50s. No evidence of infectious process was noted. She was watched on telemetry with no concerns. Her bisoprolol/HCTZ was held. She was placed on gentle hydration. She was evaluated by physical therapy and deemed stable for discharge with home physical therapy. She had a 2D echo with EF 55-60%, mild to moderate TR, moderate AR and trace MS. Patient and were explained in detail to hold Bisoprolol/HCTZ on discharge and follow up with their doctor. Condition: Stable - Instructions Diet, Activity, Other Instructions: You were admitted in hospital for dizziness and weakness. All the blood work done in hospital was normal, your urine test was normal. Follow up with your primary doctor Dr. See with in one week. We have stopped your Ziac ( bisoprolol/ hydrochlorthiazide) for now. Discuss it with your doctor if they want to start it back Continue all your other medications as before. You also had 2D echocardiogram done in the hospital. Monitor your blood pressure daily and make a log and present it to your primary doctor Dr. See. Drink plenty of liquids. Take fall risk precautions. Monitor your blood sugars. We have also given you prescription for rolling walker You told us you already have a health aid for 6 hours a day. You will be arranged for home visiting nurse and physical therapy. If you develop nausea, vomiting, chest pain, shortness of breath, lightheadedness or any new concerns, call doctor or go to hospital. Referrals: Mayi Michele [Non Staff, Medical] - Disposition: VNS/HOME HEALTH CARE - Home Medications Comprehensive Discharge Medication List: Ambulatory Orders Amlodipine Bes/Olmesartan Med [Amlodipine-Olmesartan 5-40 mg] 1 each PO DAILY Canagliflozin [Invokana] 300 mg PO DAILY 04/06/18 Clopidogrel Bisulfate [Plavix -] 75 mg PO DAILY 04/06/18 Glimepiride 1 mg PO DAILY 04/06/18 Icosapent Ethyl [Vascepa] 1 gm PO BID 04/06/18 Lubiprostone [Amitiza] 24 mcg PO DAILY 04/06/18 Miscellaneous Medical Supply [Outpatient Order] 1 each ASDIR #1 misc Ranitidine HCl [Zantac] 150 mg PO DAILY 04/06/18 Rosuvastatin Calcium [Crestor] 5 mg PO DAILY 04/06/18 Sitagliptin Phosphate [Januvia] 50 mg PO DAILY 04/06/18 This patient is new to me today: No Emergency Visit: Yes ED Registration Date: 04/05/18 Care time: The patient presented to the Emergency Department on the above date and was hospitalized for further evaluation of their emergent condition. Critical Care patient: No - Discharge Referral Referred to [facility] Med P.C.: No
[2018-04-06] MEDS ORDERED: PATIENT'S OWN MEDICATION (NON-FORMULARY) (Icosapent Ethyl [Vascepa] 1 GM) PO SCH (22:00)
[2018-04-07] MEDS ORDERED: amLODIPine BESYLATE 5 MG TABLET (FP) PO SCH (10:00)
[2018-04-07] MEDS ORDERED: CLOPIDOGREL BISULFATE 75 MG TABLET (FP) PO SCH (10:00)
[2018-04-07] MEDS ORDERED: PATIENT'S OWN MEDICATION (NON-FORMULARY) (Lubiprostone [Amitiza] 24 MCG) PO SCH (10:00)
[2018-04-07] MEDS ORDERED: PATIENT'S OWN MEDICATION (NON-FORMULARY) (Amlodipine Bes/Olmesartan Med [Amlodipine-Olmesa PO SCH (10:00)
[2018-04-07] MEDS ORDERED: RANITIDINE HCL 150 MG TABLET (FP) PO SCH (10:00)
[2018-04-07] MEDS ORDERED: ROSUVASTATIN CA 5 MG TABLET (FP) PO SCH (22:00)
== END 2018-04-06 14:51 | disposition home health service (06) | DRG 310 ==
LOC: JER 11:52 → JERBED 17:15 → INTOOBSV 17:15 → OBSVTOIN 18:11
PROVIDERS: ADMIT Hospitalist; ATTEND Hospitalist
PROC: 3E013VG Introduction of Insulin into Subcutaneous Tissue, Percutaneous Approach (ICD-10-PCS; principal; 2018-04-05)
PROC: 3E013GC Introduction of Other Therapeutic Substance into Subcutaneous Tissue, Percutaneous Approach (ICD-10-PCS; 2018-04-05)
PROC: 3E0337Z Introduction of Electrolytic and Water Balance Substance into Peripheral Vein, Percutaneous Approach (ICD-10-PCS; 2018-04-05)
DX: R00.1 Bradycardia, unspecified (principal); I10 Essential (primary) hypertension; E78.5 Hyperlipidemia, unspecified; E11.9 Type 2 diabetes mellitus without complications; I48.91 Unspecified atrial fibrillation; M19.90 Unspecified osteoarthritis, unspecified site; F32.9 Major depressive disorder, single episode, unspecified; I45.10 Unspecified right bundle-branch block; R29.6 Repeated falls; R53.1 Weakness; E86.0 Dehydration; R30.0 Dysuria; S32.039S Unspecified fracture of third lumbar vertebra, sequela; X58.XXXS Exposure to other specified factors, sequela
CPT/HCPCS: 36415; 71045-TC-FY; 80048; 80053; 81003; 82550; 82962; 83735; 84100; 84484; 85025; 87086; 87804; 93005; 93010; 93306-TC; 96372; 97116-GP; 97161-GP; 99285-25; G0378; J1644; J7030